=== PATIENT | male | born 1965 | race Caucasian/White ===

== ENCOUNTER 2016-07-28 17:40 | Emergency (ER) | payer OTHER ==
[~2016-07-28] VITALS: Ht 177.8 cm; Wt 81.7 kg
[2016-07-28 17:51] VITALS: BP 156/90
[2016-07-28] MEDS ORDERED: DIPH,PERTUSS(ACELL),TET VAC/PF 0.5 ML IM-VACC ONE ×2 (18:00→18:13)
[2016-07-28] MEDS ORDERED: LIDOCAINE 2%, 20ML SQ ONE (18:00)
[2016-07-28] MEDS ORDERED: LIDOCAINE 1%, 20ML ONE (18:13)
[2016-07-28] MEDS ORDERED: BUPIVACAINE 0.25% ONE (18:14)
[2016-07-28] MEDS ORDERED: BUPIVACAINE 0.25% INFIL ONE (19:00)
== END 2016-07-28 19:17 | disposition home or self-care (01) ==
LOC: ED 19:00
DX: S61.210A Laceration without foreign body of right index finger without damage to nail, initial encounter (principal); W45.8XXA Other foreign body or object entering through skin, initial encounter; Y93.G1 Activity, food preparation and clean up; Y92.89 Other specified places as the place of occurrence of the external cause; Y99.8 Other external cause status
CPT/HCPCS: 12001; 90471; 90715

== ENCOUNTER 2020-02-03 15:52 | Emergency (ER) | payer OTHER ==
[~2020-02-03] VITALS: Ht 177.8 cm; Wt 79.3 kg
--- NOTE | 2020-02-03 16:15 | NUR ---
PT C/O DIFFICULTY SWALLOWING THAT HAS BEEN AN ONGOING PROBLEM FOR HIM SINCE A DX OF GERD A FEW MONTHS AGO. PT ALSO STATES HE IS ANXIOUS DUE TO HAVING TO DO A TEST ON HIS ESOPHAGUS. PT ABLE TO SWALLOW SMALL AMOUNTS OF LIQUIDS PER SPOUSE.
[2020-02-03 16:52] VITALS: BP 161/102
--- NOTE | 2020-02-03 17:59 | NUR ---
ESOPHOGRAM COMPLETED. PT AWAITING RE-EVAL
--- NOTE | 2020-02-03 19:00 | NUR ---
TASK RN: DC EDUCATION PROVIDED, PT DEMONSTRATES UNDERSTANDING. PT AMBULATED STEADILY TO DC WITH RN AND SO.
--- NOTE | 2020-02-03 19:00 | NUR ---
REPORT GIVEN TO ROSALES MÉNDEZ.
== END 2020-02-03 19:02 | disposition home or self-care (01) ==
LOC: ED 17:10
DX: R13.14 Dysphagia, pharyngoesophageal phase (principal); K21.9 Gastro-esophageal reflux disease without esophagitis
CPT/HCPCS: 74220; 99283